=== PATIENT | male | born 1945 | race Caucasian/White ===

== ENCOUNTER 2020-04-07 15:37 | Outpatient (CLI) | payer MEDICARE ==
--- NOTE | 2020-04-07 16:23 | XRAY Report ---
PROCEDURE: Chest 2 View X-Ray INDICATIONS: CHEST CONGESTION TECHNIQUE: 2 view(s) of the chest. COMPARISON: None. FINDINGS: Surgical changes and devices: None. Lungs and pleura: No pleural effusions or pneumothorax. Lungs are clear. Mediastinum: Mediastinal contours are normal. Heart size is normal. Bones and chest wall: No suspicious bony abnormalities. Soft tissues appear unremarkable. IMPRESSION: No acute cardiopulmonary disease process. Reviewed by: Azra White MD, PhD on 04/07/2020 4:21 PM [facility] [place] Approved by: Azra White MD, PhD on 04/07/2020 4:21 PM [facility] [place] Station ID: [id number]
== END 2020-04-07 15:38 | disposition home or self-care (01) ==
LOC: DI 15:37
PROVIDERS: ATTEND Internal Medicine
DX: R09.89 Other specified symptoms and signs involving the circulatory and respiratory systems (principal)
CPT/HCPCS: 71046

== ENCOUNTER 2021-11-17 08:00 | Outpatient (CLI) | payer OTHER ==
[2021-11-17 18:01] LABS: BASOPHILS # (AUTO) 0.1 10^3/uL (0.0-0.1); BASOPHILS % (AUTO) 0.9 %; EOSINOPHILS # (AUTO) 0.3 10^3/uL (0.0-0.7); EOSINOPHILS % (AUTO) 5.4 %; HCT - HEMATOCRIT 43.1 % (42.0-52.0); HGB - HEMOGLOBIN 14.1 g/dL (14.0-18.0); LYMPHOCYTES # (AUTO) 2.1 10^3/uL (1.5-3.5); LYMPHOCYTES % (AUTO) 38.2 %; MEAN CORPUSCULAR HEMOGLOBIN 27.1 pg (27.0-31.0); MEAN CORPUSCULAR HGB CONC 32.7 g/dL (32.0-36.0); MEAN CORPUSCULAR VOLUME 82.9 fL (80.0-94.0); MEAN PLATELET VOLUME 11.3 fL (7.4-11.4); MONOCYTES # (AUTO) 0.5 10^3/uL (0.0-1.0); MONOCYTES % (AUTO) 8.9 %; NEUTROPHILS # (AUTO) 2.5 10^3/uL (1.5-6.6); NEUTROPHILS % (AUTO) 46.4 %; PLT - PLATELET COUNT 223 10^3/uL (130-450); RED CELL DISTRIBUTION WIDTH 13.6 % (12.0-15.0); WHITE BLOOD COUNT 5.4 x10^3/uL (4.8-10.8)
[2021-11-17 18:07] LABS: ALBUMIN 3.7 g/dL (3.2-5.5); ALKALINE PHOSPHATASE 66 IU/L (42-121); ALT ALANINE AMINOTRANSFERASE 14 IU/L (10-60); AST ASPARTATE AMINOTRANSFERASE 17 IU/L (10-42); BILIRUBIN,TOTAL 0.7 mg/dL (0.2-1.0); BUN - BLOOD UREA NITROGEN 23 mg/dL (6-20); CALCIUM 9.1 mg/dL (8.5-10.3); CARBON DIOXIDE - CO2 27 mmol/L (21-32); CHLORIDE 101 mmol/L (101-111); CHOL/HDL RATIO 3.2 (<5.0); CHOLESTEROL 180 mg/dL; CREATININE 0.9 mg/dL (0.6-1.2); GFR - MDRD 82 (>89); GLUCOSE 96 mg/dL (70-100); HDL CHOLESTEROL 57 mg/dL; LDL CHOLESTEROL,CALCULATED 112 mg/dL; SODIUM 136 mmol/L (135-145); TOTAL PROTEIN 7.3 g/dL (6.7-8.2); TRIGLYCERIDES 57 mg/dL; VLDL CHOLESTEROL 11 mg/dL
[2021-11-17 18:15] LABS: PSA TOTAL 1.397 ng/mL (0.000-2.000)
[2021-11-17 22:18] LABS: ESTIMATED AVERAGE GLUCOSE 128 mg/dL (70-100); HEMOGLOBIN A1c% 6.1 % (4.27-6.07)
== END 2021-11-17 23:59 | disposition home or self-care (01) ==
LOC: LAB.R 08:00
PROVIDERS: ATTEND Internal Medicine
DX: Z00.00 Encounter for general adult medical examination without abnormal findings (principal); F41.9 Anxiety disorder, unspecified; I48.91 Unspecified atrial fibrillation; F84.0 Autistic disorder; N40.0 Benign prostatic hyperplasia without lower urinary tract symptoms; F32.A Depression, unspecified; I10 Essential (primary) hypertension; Z79.899 Other long term (current) drug therapy
CPT/HCPCS: 80053; 80061; 83036; 83721; 84153; 84443; 85025

== ENCOUNTER 2022-11-26 13:56 | Outpatient (CLI) | payer OTHER ==
--- NOTE | 2022-11-26 16:36 | XRAY Report ---
PROCEDURE: Ribs w/PA Chest LT INDICATIONS: FLANK PAIN TECHNIQUE: 2 views of the left ribs were acquired, along with a single view chest. COMPARISON: Chest x-ray dated 04/07/2020 FINDINGS: Surgical changes and devices: None. Bones and chest wall: No fractures or dislocations. No suspicious bony lesions. Overlying soft tis sues appear unremarkable. Lungs and pleura: No pleural effusions or pneumothorax. Lungs appear clear. Mediastinum: Mediastinal contours appear normal. Heart size is normal. IMPRESSION: No acute fracture. No osseous lesion. If symptoms and/or clinical suspicion for pathology continue, f urther assessment with repeat plain films, or advanced imaging (e.g., CT, MRI, or bone scan) is recom mended for further assessment. Reviewed by: Jaylin Landers MD on 11/26/2022 4:34 PM PDT Approved by: Jaylin Landers MD on 11/26/2022 4:34 PM PDT Station ID: [id number]
== END 2022-11-26 13:57 | disposition home or self-care (01) ==
LOC: DI 13:56
PROVIDERS: ATTEND Internal Medicine
DX: R10.9 Unspecified abdominal pain (principal)

== ENCOUNTER 2022-12-14 14:43 | Emergency (ER) | payer MEDICARE ==
--- OUTSIDE RECORDS SUMMARY | 2022-12-14 15:13 | EXTERNAL MEDICAL SUMMARY RPT | Continuity of Care Document ---
Author Name Unknown Address [address] [place] [address] Phone Organization [facility] Address [address] [place] [address] Phone Care Team Providers Care Social Worker Assistant Name Role Phone Unavailable Unavailable Unavailable Jamison Valerio, Karma Unavailable Unavailable Cristo Patient Registrar, Barbie Unavailable Unavailable Medications date description facility 2022-10-18 00:00 apixaban [facility] 2022-10-19 00:00 apixaban [facility] 2022-12-14 00:00 apixaban [facility] 2022-10-18 00:00 finasteride [facility] 2022-10-19 00:00 finasteride [facility] 2022-12-14 00:00 finasteride [facility] 2022-10-18 00:00 apixaban [facility] 2022-10-19 00:00 apixaban [facility] 2022-12-14 00:00 apixaban [facility] 2022-10-18 00:00 tamsulosin [facility] 2022-10-19 00:00 tamsulosin [facility] 2022-12-14 00:00 tamsulosin [facility] 2022-10-18 00:00 apixaban [facility] 2022-10-19 00:00 apixaban [facility] 2022-12-14 00:00 apixaban [facility] 2022-10-18 00:00 [facility]lodipine [facility] 2022-10-19 00:00 [facility]lodipine [facility] 2022-12-14 00:00 amlodipine [facility] 2022-10-18 00:00 finasteride [facility] 2022-10-19 00:00 finasteride [facility] 2022-12-14 00:00 finasteride [facility] 2022-10-18 00:00 amlodipine [facility] 2022-10-19 00:00 amlodipine [facility] 2022-12-14 00:00 [facility]lodipine [facility] 2022-10-18 00:00 finasteride [facility] 2022-10-19 00:00 finasteride [facility] 2022-12-14 00:00 finasteride [facility] 2022-10-18 00:00 amlodipine [facility] 2022-10-19 00:00 amlodipine [facility] 2022-12-14 00:00 amlodipine [facility] 2022-10-18 00:00 finasteride [facility] 2022-10-19 00:00 finasteride [facility] 2022-12-14 00:00 finasteride [facility] 2022-10-18 00:00 tamsulosin [facility] 2022-10-19 00:00 tamsulosin [facility] 2022-12-14 00:00 tamsulosin [facility] 2022-10-18 00:00 amlodipine [facility] 2022-10-19 00:00 amlodipine [facility] 2022-12-14 00:00 amlodipine [facility] 2022-10-18 00:00 tamsulosin [facility] 2022-10-19 00:00 tamsulosin [facility] 2022-12-14 00:00 tamsulosin [facility] 2022-10-18 00:00 apixaban [facility] 2022-10-19 00:00 apixaban [facility] 2022-12-14 00:00 apixaban [facility] 2022-10-18 00:00 tamsulosin [facility] 2022-10-19 00:00 tamsulosin [facility] 2022-12-14 00:00 tamsulosin [facility] Problems date description facility 2022-10-15 00:00 Right sided chest pain [facility] 2022-10-15 00:00 Right sided chest pain [facility] 2022-10-15 00:00 Unspecified chest pain [facility] 2022-10-15 00:00 Unspecified chest pain [facility] 2022-10-15 00:00 Other chest pain [facility] 2022-10-15 00:00 Other chest pain [facility] Procedures date description facility 2022-10-15 00:00 Visit Code Hold [facility] 2022-10-15 00:00 Visit Code Hold [facility] Results/Labs test date facility value unit notes Social History date description facility 2022-10-15 00:00 Never smoker [facility] 2022-10-15 00:00 Never smoker [facility] [place] Vital Signs date measurement value units 2022-10-15 00:00 BMI 32.22 kg/m2 2022-10-15 00:00 BP_diastolic 75 mmHg 2022-10-15 00:00 BP_systolic 148 mmHg 2022-10-15 00:00 heart_rate 73 /min 2022-10-15 00:00 height_metric 170.18 cm 2022-10-15 00:00 height_standard 67 in 2022-10-15 00:00 temperature_metric 36.94 C 2022-10-15 00:00 temperature_standard 98.5 F 2022-10-15 00:00 weight_metric 92.99 kg 2022-10-15 00:00 weight_standard 205 lb
[2022-12-14 15:18] LABS: BASOPHILS % (AUTO) 0.5 %; EOSINOPHILS # (AUTO) 0.1 10^3/uL (0.0-0.7); HCT - HEMATOCRIT 42.1 % (42.0-52.0); HGB - HEMOGLOBIN 14.1 g/dL (14.0-18.0); LYMPHOCYTES # (AUTO) 1.2 10^3/uL (1.5-3.5); LYMPHOCYTES % (AUTO) 21.4 %; MEAN CORPUSCULAR HEMOGLOBIN 27.1 pg (27.0-31.0); MEAN CORPUSCULAR HGB CONC 33.5 g/dL (32.0-36.0); MEAN CORPUSCULAR VOLUME 80.8 fL (80.0-94.0); MEAN PLATELET VOLUME 10.2 fL (7.4-11.4); MONOCYTES # (AUTO) 0.4 10^3/uL (0.0-1.0); MONOCYTES % (AUTO) 6.1 %; NEUTROPHILS # (AUTO) 4.1 10^3/uL (1.5-6.6); NEUTROPHILS % (AUTO) 70.8 %; PLT - PLATELET COUNT 193 10^3/uL (130-450); RED BLOOD COUNT 5.21 10^6/uL (4.70-6.10); RED CELL DISTRIBUTION WIDTH 13.2 % (12.0-15.0); WHITE BLOOD COUNT 5.8 x10^3/uL (4.8-10.8)
[2022-12-14 15:34] LABS: ALBUMIN 3.8 g/dL (3.2-5.5); ALBUMIN/GLOBULIN RATIO 0.9 (1.0-2.2); BILIRUBIN,TOTAL 1.1 mg/dL (0.2-1.0); CALCIUM 9.1 mg/dL (8.5-10.3); CREATININE 0.9 mg/dL (0.6-1.2); POTASSIUM 3.7 mmol/L (3.5-5.0); TOTAL PROTEIN 7.9 g/dL (6.7-8.2)
--- NOTE | 2022-12-14 17:33 | CT Report ---
PROCEDURE: HEAD WO INDICATIONS: difficulty writing TECHNIQUE: Noncontrast 4.5 mm thick angled axial sections acquired from the foramen magnum to the vertex. For r adiation dose reduction, the following was used: automated exposure control, adjustment of mA and/or kV according to patient size. COMPARISON: None. FINDINGS: Image quality: Excellent. CSF spaces: Basal cisterns are patent. No extra-axial fluid collections. Ventricles are normal in size and shape. Brain: No midline shift. No intracranial masses or hemorrhage. Miller-white matter interface is norm al. Skull and face: No acute skull fracture is seen. Cortical defect involving right superior parietal braulio ne likely represent remote surgery, suggest clinical correlation. Sinuses: Visualized sinuses and mastoids are clear. IMPRESSION: 1. No acute intracranial pathology. 2. Cortical defect involving right high parietal bone suggest clinical correlation for prior surgery versus remote injury. Reviewed by: Musa Pfeiffer MD on 12/14/2022 5:32 PM PDT Approved by: Musa Pfeiffer MD on 12/14/2022 5:32 PM PDT Station ID: [id number]
--- NOTE | 2022-12-14 18:51 | MRI Report ---
PROCEDURE: BRAIN WO INDICATIONS: TIA; on eliquis; right hand weakness TECHNIQUE: Noncontrast axial T1 spin echo, axial T2 fast spin echo, sagittal and axial FLAIR, coronal T2 fast sp in echo, axial gradient echo, axial diffusion and ADC through the brain. COMPARISON: CT head from the same day.. FINDINGS: Image quality: Excellent. CSF Spaces: Basal cisterns are patent. No extra-axial fluid collections. Ventricles are normal in size and shape. Brain: No intracranial masses or hemorrhage. Miller/white matter interface is normal. Brainstem appe ars normal. Diffusion-weighted images demonstrate no acute ischemic insult. No chronic ischemic ins ults. Normal intravascular flow voids are present. Skull and face: No acute calvarial fracture is seen. Defect involving right high parietal calvarium i s noted. Orbits appear normal. Sinuses: Sinuses and mastoids are clear. IMPRESSION: 1. No acute infarction. No intracranial bleed or midline shift. 2. Right high parietal calvarial defect suggest clinical correlation for prior surgery/injury. Reviewed by: Musa Pfeiffer MD on 12/14/2022 6:50 PM PDT Approved by: Musa Pfeiffer MD on 12/14/2022 6:50 PM PDT Station ID: [id number]
--- NOTE | 2022-12-14 20:00 | ED Physician Documentation ---
History of Present Illness - Stated complaint Stated Complaint: DIZZYNESS,TROUBLE WALKING - Chief complaint Chief Complaint: Neuro - Additonal information Additional information: 77-year-old male presents emergency department from a local walk-in clinic for evaluation of difficulty using his right hand. He began noticing symptoms yesterday but this morning was unable to write clearly thus he went to a local walk-in clinic. As they were concerned about stroke he was referred to the ER. Past medical history is most significant for A-fib. On Eliquis. Patient denies any falls or trauma. No headaches. 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 At the time of my initial evaluation patient has an NIHSS of 0. Right now he states that his hand is feels normal and he is able to write without difficulty. Review of Systems Constitutional: denies: Fever, Chills Nose: reports: Reviewed and negative Cardiac: reports: Reviewed and negative Respiratory: reports: Reviewed and negative Skin: reports: Reviewed and negative Musculoskeletal: reports: Reviewed and negative Neurologic: reports: Focal weakness Psychiatric: reports: Reviewed and negative PD PAST MEDICAL HISTORY - Present Medications Home Medications: Ambulatory Orders Medication Instructions Recorded Confirmed Atorvastatin Calcium 40 mg PO DAILY #30 tablet 12/14/22 - Allergies Allergies/Adverse Reactions: Allergies Allergy/AdvReac Type Severity Reaction Status Date / Time Penicillins Allergy Hives Verified 12/14/22 14:59 PD ED PE NORMAL - General General: Alert and oriented X 3, No acute distress - HEENT HEENT: PERRL - Neck Neck: Supple, no meningeal sign, No adenopathy - Cardiac Cardiac: RRR, No murmur - Respiratory Respiratory: No respiratory distress, Clear bilaterally - Abdomen Abdomen: Normal bowel sounds, Soft, Non tender, Non distended - Back Back: No CVA TTP - Derm Derm: Normal color, Warm and dry, No rash - Extremities Extremities: No deformity, No tenderness to palpate, Normal ROM s pain, No edema - Neuro Neuro: Alert and oriented X 3, fitness manager 2-12 intact Eye Opening: Spontaneous Motor: Obeys Commands Verbal: Oriented GCS Score: 15 Results - Vitals Vitals: Vital Signs - 24 hr 12/14/22 12/14/22 12/14/22 14:53 14:59 16:59 Temperature 36.3 C L 36.5 C 36.5 C Heart Rate 88 88 86 Respiratory 16 16 16 Rate Blood Pressure 177/88 H 177/88 H 150/88 H O2 Saturation 99 99 99 12/14/22 20:00 Temperature 36.5 C Heart Rate 84 Respiratory 16 Rate Blood Pressure 144/88 H O2 Saturation 97 Oxygen O2 Source Room air - EKG (time done) 1520 EKG releavant findings:: EKG personally interpreted by author of this note. Relevant findings are: Rate: Rate (enter#) (73) Rhythm: Atrial fibrillation Intervals: No: Prolonged QT Ischemia: Non specific changes Compare to prior EKG: Old EKG unavailable Computer interpretation: Agree with computer - Labs Labs: Laboratory Tests 12/14/22 12/14/22 12/14/22 15:12 15:12 15:12 WBC 5.8 RBC 5.21 Hgb 14.1 Hct 42.1 MCV 80.8 MCH 27.1 MCHC 33.5 RDW 13.2 Plt Count 193 MPV 10.2 Neut # (Auto) 4.1 Lymph # (Auto) 1.2 L [place] # (Auto) 0.4 Eos # (Auto) 0.1 Baso # (Auto) 0.0 Absolute Nucleated RBC 0.00 Nucleated RBC % 0.0 Sodium 136 Potassium 3.7 Chloride 103 Carbon Dioxide 24 Anion Gap 9.0 BUN 25 H Creatinine 0.9 Estimated GFR (MDRD) 82 L Glucose 112 H Calcium 9.1 Total Bilirubin 1.1 H AST 22 ALT 15 Alkaline Phosphatase 61 Troponin I High Sens 8.4 Total Protein 7.9 Albumin 3.8 Globulin 4.1 Albumin/Globulin Ratio 0.9 L Lipase 32 - Rads (name of study) CT head Relevant Findings:: Final report received (No acute intracranial pathology. Cortical defect involving the right high parietal bone suggestive clinical correlation for prior surgery versus remote injury) MRI brain Relevant Findings:: Final report received (No acute infarction. No intracranial bleed or midline shift. Right high parietal calvarial defect suggest clinical correlation for prior surgery and injury) US carotid bilateral: Relevant Findings:: Other (Per polysomnography technologist no hemodynamically significant stenosis or lesions. The ICA/CCA ratio 0.7) PD Medical Decision Making - ED course Complexity details: reviewed results, re-evaluated patient, considered differential, d/w patient ED course: 77-year-old male presents emergency department for evaluation of right arm weakness which she first noticed yesterday evening. This morning he was trying to write on paper and had difficulty using his hand so he went to a local walk- in clinic. They advised him to come to the ER. On presentation to the emergency department he was well outside the stroke window however as he is already anticoagulated on Eliquis due to a history of A-fib he is not a tenecteplase candidate. At the time of my initial exam in the emergency department around 1600 the patient was free of focal neurodeficits. He was able to write his name easily on a piece of paper for me. His NIHSS was 0. Subsequently we did obtain CBC, electrolytes which showed no acute worrisome findings. His EKG is interpreted by myself shows well-controlled A-fib rate of 73 without ischemic findings. Subsequently a CT of the head was completed which showed no acute intracranial findings. We were able to obtain an MRI which also showed no acute infarcts. There is findings of an old right parietal bone injury which patient endorses due to head trauma when he was a child. Subsequently ultrasound of the carotid arteries was also completed which did not show any hemodynamically significant stenosis or occlusions. His ICA/CCA ratio was 0.7. Clinically this patient presents is having had a TIA given that he has resolved right hand weakness. Ideally we would be able to obtain an echocardiogram however echo was not available at [facility] until Saturday. Patient is going to work very closely with his primary care doctor in order to obtain a stat ultrasound. Patient is not yet on a statin therefore I have loaded him with a statin today and will start him on 40 mg until seen and cleared by his neurologist. He should continue the Eliquis for the history of the A-fib. I discussed the plan and findings with the patient and his at the bedside and they are in agreement. Departure - Departure Disposition: 01 Home, Self Care Clinical Impression: TIA (transient ischemic attack) Condition: Stable Record reviewed to determine appropriate education?: Yes Instructions: TIA Follow-Up: Gloria Baird MD [Primary Care Provider] - Prescriptions: Atorvastatin Calcium 40 mg PO DAILY #30 tablet Comments: Alexis glez are seen today in the ER because last night began having difficulty moving your right hand and this morning he had difficulty writing. By the time you arrived to the emergency department we evaluated you your right hand was now normal. This is concerning for a type of condition called a mini stroke or TIA. Your labs today in the ER were essentially normal and did not show any worrisome findings though you may be just mildly dehydrated. Your EKG showed a well- controlled rate in atrial fibrillation which is not a new diagnosis. You need to continue the Eliquis. A CT of the head showed no acute findings such as bruising or bleeding within the brain. Subsequently an MRI of the brain showed no acute infarcts. We did do an ultrasound of both of the carotid arteries in your neck and do not find any significant stenosis or occlusion. Your ICA/CCA ratio is 0.7 which is very reassuring. You do need to have an echocardiogram completed as soon as possible for further evaluation of your heart. People that are in atrial fibrillation can form clots which can travel to the brain and cause stroke this is the reason to obtain the echo. If at any point you develop any slurred speech, facial droop, sudden arm or leg weakness you do need to return immediately to the emergency department NIHSS - Time Time: 16:00 - Level of Consciousness Level of consciousness: (0) Alert, Keenly responsive LOC Questions: (0) Answers both Q's correct LOC Commands: (0) Performs both correctly - Gaze Best Gaze: (0) Normal - Visual Visual: (0) No loss - Facial Palsy Facial Palsy: (0) Normal, symmetrical movement - Motor Arms (both separate) Motor Arm (right): (0) No drift Motor Arm (left): (0) No drift - Motor Legs (both separate) Motor Leg (right): (0) No drift - Limb Ataxia Limb Ataxia: (0) Absent - Sensory Sensory: (0) Normal - Best Language Best Language: (0) No aphasia - Dysarthria Dysarthria: (0) Normal - Extinction and Inattention (formally neg Extinction and inattention: (0) No abnormality
[2022-12-14] MEDS ORDERED: ATORVASTATIN 40 MG TABLET PO STA (20:10)
[2022-12-14 20:33] VITALS: BP 144/88
--- NOTE | 2022-12-14 22:41 | Ultrasound Report ---
PROCEDURE: Carotid Doppler Complete INDICATIONS: TIA; resolved right hand weakness TECHNIQUE: Color and pulse Doppler interrogation was performed of both carotid systems, with image documentation and velocity measurements. COMPARISON: None. FINDINGS: Right side: Brachial blood pressure: 127/81 mm Hg. Common carotid artery peak systolic velocity: 95 cm/sec. Internal carotid artery peak systolic velocity: 65 cm/sec. Internal carotid artery end diastolic velocity: 11 cm/sec. External carotid artery peak systolic velocity: 130 cm/sec. ICA/CCA peak systolic ratio: 0.7 . Miller scale imaging description: There is intimal thickening in the distal common carotid artery, angel tid bifurcation, and carotid bulb with a small focal calcified plaque in the proximal carotid bulb. Percent internal carotid artery stenosis: Less than 50%. Vertebral artery: Flow direction is antegrade. Left side: Brachial blood pressure: 131/83 mm Hg. Common carotid artery peak systolic velocity: 104 cm/sec. Internal carotid artery peak systolic velocity: 70 cm/sec. Internal carotid artery end diastolic velocity: 12 cm/sec. External carotid artery peak systolic velocity: 96 cm/sec. ICA/CCA peak systolic ratio: 0.7 . Miller scale imaging description: There is intimal thickening in the common carotid artery extending in to the carotid bulb with mild echogenic plaque. Percent internal carotid artery stenosis: Less than 50%. Vertebral artery: Flow direction is antegrade. IMPRESSION: 1. In the right internal carotid artery, there is less than 50% narrowing based on peak systolic [place] criteria. 2. In the left internal carotid artery, there is less than 50% narrowing based on peak systolic veloc ity criteria. 3. Antegrade blood flow within the right vertebral artery. 4. Antegrade blood flow within the left vertebral artery. The estimate of stenosis included in the report of the imaging study was calculated using the [facility]-end orsed standards of carotid artery stenosis. Reviewed by: Patric Choi MD on 12/14/2022 10:40 PM PDT Approved by: Patric Choi MD on 12/14/2022 10:40 PM PDT Station ID: [id number]
== END 2022-12-14 21:32 | disposition home or self-care (01) ==
LOC: ED 14:43
DX: G45.9 Transient cerebral ischemic attack, unspecified (principal); I48.91 Unspecified atrial fibrillation; Z79.01 Long term (current) use of anticoagulants
CPT/HCPCS: 36415; 70450; 70551; 80053; 83690; 84484; 85025; 93005; 93880; 99284; A9270

== ENCOUNTER 2022-12-16 11:46 | Emergency (ER) | payer MEDICARE ==
--- NOTE | 2022-12-16 12:02 | ED Physician Documentation ---
PD HPI HEENT - Stated complaint Stated Complaint: DIZZINESS - History obtained from History obtained from: Patient - History of Present Illness Timing - onset: How many hours ago (1), Today Timing - duration: Minutes Timing - details: Abrupt onset (he was dong minimal activity, just walking at home, adn had onset of vertigo. Not distinct spinning per se. No associated trouble talking, focal weakness, hearing change, visual loss. No headache. Symptoms lasted several minutes and then improved.), Now resolved Improves: Medication Worsens: Position (moving head causes feeling of off balance. Does not have distinct vertigo per se.) Associated symptoms: No: Fever, Congestion, Headache Recently seen: Emergency Dept (had similar 2 dfays ago and seen in ER with labs, ECG, rhythm monitor, carotid dopplers, brain CT and then MRI. No signs of CVA nor other neurologic problems structurally. NO ICH.) Review of Systems Constitutional: denies: Fever, Chills, Myalgias Nose: reports: Sinus pressure / pain. denies: Rhinorrhea / runny nose, Congestion Throat: denies: Sore throat Cardiac: reports: Chest pain / pressure. denies: Palpitations Respiratory: denies: Dyspnea, Cough Neurologic: denies: Focal weakness, Numbness, Near syncope, Confused, Headache, Head injury PD PAST MEDICAL HISTORY - Present Medications Home Medications: Ambulatory Orders Medication Instructions Recorded Confirmed Atorvastatin Calcium 40 mg PO DAILY #30 tablet 12/14/22 - Allergies Allergies/Adverse Reactions: Allergies Allergy/AdvReac Type Severity Reaction Status Date / Time Penicillins Allergy Hives Verified 12/16/22 12:04 PD ED PE NORMAL - Vitals Vital signs reviewed: Yes - General General: Alert and oriented X 3, No acute distress, Well developed/nourished - HEENT HEENT: Atraumatic, PERRL, EOMI (no nystagmus at this time. ) - Neck Neck: No JVD, No bruit - Respiratory Respiratory: No respiratory distress, Clear bilaterally - Abdomen Abdomen: Soft, Non tender - Neuro Neuro: Alert and oriented X 3, environmental manager 2-12 intact, No motor deficit, No sensory deficit, Normal speech Results - Vitals Vitals: Vital Signs - 24 hr 12/16/22 12/16/22 12:04 12:29 Temperature 36.9 C Heart Rate 80 70 Respiratory 14 20 Rate Blood Pressure 151/67 H 141/86 H O2 Saturation 100 99 Oxygen O2 Source Room air - Labs Labs: Laboratory Tests 12/16/22 13:11 POC Whole Bld Glucose 131 H PD Medical Decision Making - ED course Complexity details: reviewed old records (ED visit and MRI/Carotid dopple/ lab reports. ), considered differential (unclear if central/ TIA versus peripheral vertigo. He had trouble writing with pen 2 days ago with it. So presumed TIA at that time. He is already on DOAC. Told to return if recurrent symptoms.), d/w patient, d/w family (spouse here), other (I did talk via speaker phone with the patient's brother, who is a neurosurgeon in [facility]. He was comfortable with the workup 2 days ago including MRI brain, CT head, carotid dopplers and labs. Shared decision with patient and his brother and I to not need repeat testings, with symptoms better.) Departure - Departure Disposition: 01 Home, Self Care Clinical Impression: Episode of dizziness Condition: Stable Instructions: ED Vertigo Unspecified Follow-Up: Gloria Baird MD [Primary Care Provider] - Comments: Continue with your current medications. Light activity only. Stay well- hydrated. Return to the ER or call your primary care if recurrent episode lasting more than 5 to 10 minutes or associated with any other symptoms (local weakness, headache, chest pain, shortness of breath or other concerns). Discharge Date/Time: 12/16/22 13:14
--- OUTSIDE RECORDS SUMMARY | 2022-12-16 12:18 | EXTERNAL MEDICAL SUMMARY RPT | Continuity of Care Document ---
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 Name Role Phone Unavailable Unavailable Unavailable Karma Swift Pa-C Unavailable Unavailable Lon, Provider Unavailable Unavailable Cristo Patient Registrar, Barbie Unavailable [...] [facility] [place] 2022-12-14 00:00 finasteride [facility] [...] [facility] [place] 2022-10-18 00:00 tamsulosin [facility] [place] 2022-10-19 00:00 tamsulosin [facility] [place] 2022-12-14 00:00 tamsulosin [facility] [place] 2022-12-14 00:00 tamsulosin [facility] [place] Problems date description facility 2022-10-15 00:00 Right sided chest pain [facility] [place] 2022-10-15 00:00 Right sided chest pain [facility] [place] 2022-10-15 00:00 Right sided chest pain [facility] [place] 2022-10-15 00:00 Unspecified chest pain [facility] [place] 2022-10-15 00:00 Unspecified chest pain [facility] [place] 2022-10-15 00:00 Unspecified chest pain [facility] [place] 2022-10-15 00:00 Other chest pain [facility] [place] 2022-10-15 00:00 Other chest pain [facility] [place] 2022-10-15 00:00 Other chest pain [facility] [place] 2022-12-14 00:00 Elevated blood pressure [facility] [place] 2022-12-14 00:00 Benign essential hypertension [facility] [place] 2022-12-14 00:00 Dizziness [facility] [place] 2022-12-14 00:00 Elevated blood press ure reading without diagnosis of hypertension [facility] [place] 2022-12-14 00:00 Essential (primary) hypertensio n [facility] [place] 2022-12-14 00:00 Elevated blood-press ure reading, without diagnosis of hypertension [facility] [place] 2022-12-14 00:00 Dizziness and giddiness [facility] [place] Procedures date description facility 2022-10-15 00:00 Visit Code Hold [facility] [place] 2022-10-15 00:00 Visit Code Hold [facility] [place] 2022-10-15 00:00 Visit Code Hold [facility] [place] 2022-12-14 00:00 Visit Code Hold [facility] [place] 2022-12-14 00:00 POC URINALYSIS DIP [facility] [place] 2022-12-14 00:00 EKG Office Complete [facility] [place] Results/Labs test date facility value unit notes Social History date description facility 2022-10-15 00:00 Never smoker [facility] [place] 2022-10-15 00:00 Never smoker [facility] [place] 2022-10-15 00:00 Never smoker [facility] [place] 2022-12-14 00:00 Never smoker [facility] [place] Vital Signs date measurement value units 2022-10-15 00:00 BMI 32.22 kg/m2 2022-10-15 00:00 BP_diastolic 75 mmHg 2022-10-15 00:00 BP_systolic 148 mmHg 2022-10-15 00:00 heart_rate 73 /min 2022-10-15 00:00 height_metric 170.18 cm 2022-10-15 00:00 height_standard 67 in 2022-10-15 00:00 temperature_metric 36.94 C 2022-10-15 00:00 temperature_standard 98.5 F 2022-10-15 00:00 weight_metric 92.99 kg 2022-10-15 00:00 weight_standard 205 lb 2022-12-14 00:00 BMI 32.22 kg/m2 2022-12-14 00:00 BP_diastolic 85 mmHg 2022-12-14 00:00 BP_systolic 163 mmHg 2022-12-14 00:00 heart_rate 72 /min 2022-12-14 00:00 height_metric 170.18 cm 2022-12-14 00:00 height_standard 67 in 2022-12-14 00:00 respiration_rate 16 /min 2022-12-14 00:00 temperature_metric 36.5 C 2022-12-14 00:00 temperature_standard 97.7 F 2022-12-14 00:00 weight_metric 92.99 kg 2022-12-14 00:00 weight_standard 205 lb
[2022-12-16 12:36] VITALS: BP 141/86
== END 2022-12-16 13:14 | disposition home or self-care (01) ==
LOC: ED 11:46
DX: R42 Dizziness and giddiness (principal)
CPT/HCPCS: 36415; 99283; 99284

== ENCOUNTER 2023-03-12 15:26 | Outpatient (CLI) | payer MEDICARE ==
[2023-03-12 16:12] LABS: CREATININE 0.9 mg/dL (0.6-1.3)
[2023-03-12] MEDS: BARIUM SULFATE 450 ML BOTTLE PO ONE (17:01)
[2023-03-12] MEDS: iohexoL-300 100 ML VIAL IVP ONE (17:02)
--- NOTE | 2023-03-12 18:06 | CT Report ---
PROCEDURE: CT abdomen and pelvis with contrast INDICATIONS: ABD PAIN TECHNIQUE: Helical axial CT of the abdomen and pelvis was obtained after intravenous contrast adminis tration and reformatted in multiple planes. Radiation dose reduction was achieved using automated exp osure control or adjustment of mA and/or kV according to patient size. COMPARISON: None FINDINGS: Lower thorax: The lung bases are clear. Heart size normal. No hiatal hernia. Liver: Normal in size and attenuation. No contour deformity present. Biliary system: No calcified cholelithiasis or pericholecystic inflammation. No evidence of bile du ct dilatation. Pancreas: Unremarkable without mass or inflammation evident. Spleen: Normal in size and density. Adrenals: Normal morphology and density. Reproductive system: Unremarkable as visualized. Urinary system: Normal renal size and attenuation. No renal calculi, hydronephrosis, or solid mass p resent. Urinary bladder unremarkable. Several left renal cysts, largest 3.6 cm. Gastrointestinal system: The bowel appears unremarkable with no evidence of bowel obstruction or inf lammation. The stomach appears unremarkable. Moderate fecal debris throughout the colon Appendix: No findings to suggest acute appendicitis. Peritoneal spaces: No mesenteric or retroperitoneal adenopathy. No free air. No free fluid. Vasculature: The IVC, aorta and iliac vasculature are unremarkable. Abdominal wall: Right inguinal herniorrhaphy with fasteners in good position. Small left inguinal her kike contains fat without bowel involvement Musculoskeletal: Normal bone mineralization. No acute fractures. 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 Degenerative disc disease and arthropathy IMPRESSION: No acute CT findings in the abdomen and pelvis. Moderate fecal debris throughout the colon without obstruction. 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
== END 2023-03-12 15:27 | disposition home or self-care (01) ==
LOC: DI 15:26
PROVIDERS: ATTEND Internal Medicine
DX: R10.31 Right lower quadrant pain (principal); R10.32 Left lower quadrant pain; Z79.899 Other long term (current) drug therapy; M51.36 Other intervertebral disc degeneration, lumbar region; M47.816 Spondylosis without myelopathy or radiculopathy, lumbar region
CPT/HCPCS: 36415; 74177; 82565; A9270; Q9967